=== PATIENT | female | born 1975 | race Two or more races ===

== ENCOUNTER 2018-01-18 19:40 | Emergency (ER) | payer SELFPAY ==
[~2018-01-18] VITALS: Ht 147.3 cm; Wt 50.8 kg
[2018-01-18] MEDS ORDERED: CALCIUM + VITA1 EAC1 PO (19:53)
[2018-01-18 20:03] VITALS: BP 104/66
[2018-01-18 20:26] VITALS: BP 104/66
--- NOTE | 2018-01-18 22:24 | Emergency Room Report ---
History of Present Illness General Chief Complaint: General Complaint Source: Patient Present Illness HPI Patient is a 42-year-old female who presented after accidental chemical exposure to both hands. The patient had accidentally washed her hands and dishes with toilet cleaner laboratory equipment. Patient the patient the reportedly subsequently washed her hand thoroughly with soap and water as well as continued irrigations to hand for 15 minutes bilaterally. The patient is right-hand dominant. She denies any current pain or burning sensation to her hands. The exposure occurred approximately 1 hour prior to arrival. Allergies: Coded Allergies: No Known Allergies (Unverified , 01/18/18) Patient History Past Medical History: see triage record Last Menstrual Period: Dec Reviewed Nursing Documentation: PMH: Agreed; PSxH: Agreed Nursing Documentation-PMH Past Medical History: No Stated History Review of Systems All Other Systems: negative except mentioned in HPI Physical Exam Vital Signs Date Time Temp Pulse Resp B/P (MAP) Pulse Ox O2 Delivery O2 Flow Rate FiO2 01/18/18 19:44 98.4 83 16 104/66 98 Room Air 98.4 General Appearance: well appearing, no apparent distress, alert, GCS 15 Head: normocephalic, atraumatic ENT: hearing grossly normal, normal voice Neck: full range of motion, supple Respiratory: no respiratory distress, speaking full sentences Musculoskeletal: no calf tenderness Neurologic: normal gait Psychiatric: mood/affect normal Skin: no rash Medical Decision Making Diagnostic Impression: Primary Impression: History of chemical exposure ER Course Patient presented for chemical exposure. Differential diagnosis included was not limited to caustic agent, burn, nontoxic exposure among others. Patient has a benign exam and does not appear to require any further imaging or laboratory testing at this time. The poison control was contacted resistant with chemical exposure management. The patient showed no acute injuries at this time. Patient was advised to continue irrigation of her hands at home. The patient is advised subsequent recheck with her primary care physician if needed. There does not appear to be any current chemical pedro noted.The patient is advised to follow up with primary care doctor in 2 days if any symptoms develop. Patient is advised to return if any worsening condition or if any changes in status that are concerning. This report is dictated with [employer] inside sales consultant software which may occasionally lead to discrepancies related to use of this software. Last Vital Signs Date Time Temp Pulse Resp B/P (MAP) Pulse Ox O2 Delivery O2 Flow Rate FiO2 01/18/18 20:26 98.4 16 104/66 98 Room Air 98.4 01/18/18 20:03 72 Status: improved Disposition: HOME, SELF-CARE Condition: Stable Referrals: NOT CHOSEN IPA/,REFERRING (PCP) Patient Instructions: Hand Washing Additional Instructions: Keep hands clean and dry return if worse Richard Kirk MD Jan 18, 2018 22:24
== END 2018-01-18 20:26 | disposition home or self-care (01) ==
LOC: EMR 20:05
DX: Z77.098 Contact with and (suspected) exposure to other hazardous, chiefly nonmedicinal, chemicals (principal)
CPT/HCPCS: 99282